=== PATIENT | male | born 1975 | race Caucasian/White ===

== ENCOUNTER 2019-04-06 12:44 | Emergency (ER) | payer OTHER ==
[~2019-04-06] VITALS: Ht 180.3 cm; Wt 93.0 kg
[2019-04-06 12:46] VITALS: Ht 180.3 cm; Wt 93.0 kg
[2019-04-06 14:34] VITALS: BP 123/74
== END 2019-04-06 14:34 | disposition home or self-care (01) ==
LOC: ED 12:44
DX: R25.2 Cramp and spasm (principal); M54.6 Pain in thoracic spine; R25.1 Tremor, unspecified
CPT/HCPCS: 72072; J1885